=== PATIENT | female | born 1955 | race Caucasian/White ===

== ENCOUNTER → 2019-12-17 12:19 | Outpatient (CLI) | payer OTHER, SELFPAY ==
--- NOTE | ~2019-12-17 | DEXA_ITS ---
Bone Density Report Name: Leah Toney Age: 64 Sex: Female Ethnicity: White Date of : 1955 Indication: osteopenia; monitoring treatment; hysterectomy;postmenopausal Referring Provider: BRINA, DENISE Study: Bone densitometry was performed. Exam Date: December 17, 2019 Accession number: [id number] Bone Density: Region BMD T-score Z-score Classification AP Spine (L1-L4) 0.854 -1.8 -0.2 Osteopenia Femoral Neck (Left) 0.584 -2.4 -1.0 Osteopenia Total Hip (Left) 0.758 -1.5 -0.4 Osteopenia Femoral Neck (Right) 0.633 -1.9 -0.6 Osteopenia Total Hip (Right) 0.793 -1.2 -0.2 Osteopenia Total Hip Mean 0.776 -1.4 -0.3 Osteopenia World Health Organization criteria for BMD impression classify patients as: Normal (T-score at or above -1.0), Osteopenia (T-score between -1.0 and -2.5), or Osteoporosis (T-score at or below -2.5). 10-year Fracture Risk: FRAX not reported because: Treated for osteoporosis Previous Exams: Region Exam Age BMD T-score BMD Change BMD Change Date g/cm2 vs Baseline vs Previous AP Spine(L1-L4) 12/17/2019 64 0.854 -1.8 -0.013 -0.005 01/06/2017 61 0.859 -1.7 -0.007 -0.007 10/30/2010 55 0.867 -1.6 Total Hip(Left) 12/17/2019 64 0.758 -1.5 0.014 0.003 01/06/2017 61 0.754 -1.5 0.010 0.010 10/30/2010 55 0.744 -1.6 Total Hip(Right) 12/17/2019 64 0.793 -1.2 0.067* 0.037* 01/06/2017 61 0.756 -1.5 0.030* 0.030* 10/30/2010 55 0.726 -1.8 *Denotes significance at 95% confidence level, LSC for AP Spine = 0.022 g/cm2, LSC for Total Hip = 0.027 g/cm2 Clinical Information Provided by Patient: Is being treated for osteoporosis Has used the following medications: Reclast (i.e. zoledronate) Has the following medical conditions: Hysterectomy Patient maximum height was 65 Menopause Age: 43 Drinks caffeinated beverages Onset of menses at age 14 Number of children 3 Impression: The patient has low bone mass, based on the Left Femoral Neck T-score. No significant bone loss was observed. Discussion: PATIENT UNDER TREATMENT WITH NO SIGNIFICANT BMD LOSS SINCE LAST EXAM. In an untreated patient, BMD typically declines with age. A lack of decline or gain is usually a sign that treatment is efficacious and fracture risk is reduced. It is important to ask patients whether they are taking their medications and to
== END ==
PROVIDERS: Visit Provider Nurse Practitioner
DX: M85.89 Other specified disorders of bone density and structure, multiple sites (principal)
CPT/HCPCS: 77080

== ENCOUNTER 2020-03-03 16:09 | Outpatient (CLI) | payer OTHER, SELFPAY ==
--- NOTE | ~2020-03-03 | US_ITS ---
EXAMINATION: US joint non vasc ltd LT DATE: 03/03/2020 16:41 INDICATION: Multiple palpable lesions in the left leg. TECHNIQUE: Multiple grayscale and Doppler ultrasound images of the region of consolidation at the lef t leg were obtained. COMPARISON: None FINDINGS: At the anterior left calf there is an 8 x 4 x 4 mm poorly defined nodular echogenic region along the junction between the musculature and subcutaneous fat. The lesion appears centered within the muscula ture but does bulge beyond the level of the fascia on either side of the nodule. There is some vascul ar flow within the echogenic region on color Doppler. No correlate identified at the sites of the dis iona palpable abnormalities at the lateral left ankle and posterior to the left knee. IMPRESSION: 1. Indeterminate 8 x 4 x 4 mm echogenic nodular region centered within the superficial aspect of the musculature which raises concern for neoplasm either benign or malignant. Alternatively this could re present focal inflammatory change. Consider pre and postcontrast MRI for further evaluation. Reviewed, dictated and finalized at location A. Y LEVEL RECRUITER IMPRESSION: 1. Indeterminate 8 x 4 x 4 mm echogenic nodular region centered within the supe rficial aspect of the musculature which raises concern for neoplasm either diogo gn or malignant. Alternatively this could represent focal inflammatory change. Consider pre and postcontrast MRI for further evaluation.
== END 2020-03-03 16:10 | disposition home or self-care (01) ==
PROVIDERS: PCP Internal Medicine
DX: M79.89 Other specified soft tissue disorders (principal)
CPT/HCPCS: 76882

== ENCOUNTER → 2020-05-06 13:25 | Outpatient (CLI) | payer OTHER, SELFPAY ==
--- NOTE | ~2020-05-06 | XR_ITS ---
XR knee LT 3V DATE: 05/06/2020 13:56 INDICATION: Left lower extremity swelling. A by 4 x 4 mm popliteal noted. TECHNIQUE: Standing AP and lateral views. [place] view. COMPARISON: None FINDINGS: No fracture or dislocation or joint effusion. No periosteal reaction or bone destruction. N o radiopaque intra-articular loose body or chondrocalcinosis. Mild periarticular spurring of the rey lla. IMPRESSION: Mild osteoarthritis Reviewed, dictated and finalized at location A. NE REPAIRER SERVICE IMPRESSION: Mild osteoarthritis
== END ==
DX: M79.89 Other specified soft tissue disorders (principal); M17.12 Unilateral primary osteoarthritis, left knee
CPT/HCPCS: 73562

== ENCOUNTER 2022-01-08 07:54 | Outpatient (CLI) | payer OTHER, SELFPAY ==
--- NOTE | ~2022-01-08 | US_ITS ---
EXAMINATION: US venous doppler [facility] DATE: 01/08/2022 09:06 INDICATION: Left lower limb pain. Left lower limb varicose veins. TECHNIQUE: Grayscale ultrasound images without and with compression and Doppler ultrasound images of the left lower extremity veins were obtained. COMPARISON: None. FINDINGS: The visualized portions of left common femoral vein, profunda (deep) femoral vein, femoral vein, popl iteal vein, peroneal veins, posterior tibial veins, and greater saphenous vein outflow are patent. No varicocele veins are identified. IMPRESSION: 1. No deep venous thrombosis. Reviewed, dictated and finalized at location B.
== END 2022-01-08 07:55 | disposition home or self-care (01) ==
DX: I83.813 Varicose veins of bilateral lower extremities with pain (principal); Z48.812 Encounter for surgical aftercare following surgery on the circulatory system
CPT/HCPCS: 93971

== ENCOUNTER → 2022-01-11 08:51 | Outpatient (CLI) | payer OTHER, SELFPAY ==
--- NOTE | ~2022-01-11 | DEXA_ITS ---
Bone Density Report Name: ISABEL MCKEON Age: 66 Sex: Female Ethnicity: White Date of : 1955 Indication: osteopenia; monitoring treatment; hysterectomy; postmenopausal Referring Provider: SANGEETHA SHEA Study: Bone densitometry was performed. Exam Date: January 11, 2022 Accession number: [id number] Bone Density: Region BMD T-score Z-score Classification AP Spine (L1-L4) 0.893 -1.4 0.3 Osteopenia Femoral Neck (Left) 0.607 -2.2 -0.7 Osteopenia Total Hip (Left) 0.776 -1.4 -0.2 Osteopenia Femoral Neck (Right) 0.636 -1.9 -0.4 Osteopenia Total Hip (Right) 0.801 -1.2 0.0 Osteopenia Total Hip Mean 0.789 -1.3 -0.1 Osteopenia World Health Organization criteria for BMD impression classify patients as: Normal (T-score at or above -1.0), Osteopenia (T-score between -1.0 and -2.5), or Osteoporosis (T-score at or below -2.5). 10-year Fracture Risk: FRAX not reported because: Treated for osteoporosis Previous Exams: Region Exam Age BMD T-score BMD Change BMD Change Date g/cm2 vs Baseline vs Previous AP Spine(L1-L4) 01/11/2022 66 0.893 -1.4 0.026* 0.039* 12/17/2019 64 0.854 -1.8 -0.013 -0.005 01/06/2017 61 0.859 -1.7 -0.007 -0.007 10/30/2010 55 0.867 -1.6 Total Hip(Left) 01/11/2022 66 0.776 -1.4 0.032* 0.018 12/17/2019 64 0.758 -1.5 0.014 0.003 01/06/2017 61 0.754 -1.5 0.010 0.010 10/30/2010 55 0.744 -1.6 Total Hip(Right) 01/11/2022 66 0.801 -1.2 0.074* 0.007 12/17/2019 64 0.793 -1.2 0.067* 0.037* 01/06/2017 61 0.756 -1.5 0.030* 0.030* 10/30/2010 55 0.726 -1.8 *Denotes significance at 95% confidence level, LSC for AP Spine = 0.022 g/cm2, LSC for Total Hip = 0.027 g/cm2 Clinical Information Provided by Patient: Is being treated for osteoporosis Has used the following medications: Reclast (i.e. zoledronate), Vitamin D Has the following medical conditions: Hysterectomy Patient maximum height was 65.25 Menopause Age: 43 Drinks caffeinated beverages Onset of menses at age 14 Number of children 3 Impression: The patient has low bone mass, based on the Left Femoral Neck T-score. No significant bone loss was observed. Discussion: PATIENT UNDER TREATMENT WITH NO SIGNIFICANT BMD LOSS SINCE LAST EXAM. In an untreated patient, BMD typic
== END ==
PROVIDERS: PCP Internal Medicine; Visit Provider Obstetrics & Gynecology Gynecology
DX: Z78.0 Asymptomatic menopausal state (principal)
CPT/HCPCS: 77080

== ENCOUNTER 2022-01-15 16:17 | Outpatient (CLI) | payer OTHER, SELFPAY ==
--- NOTE | ~2022-01-15 | US_ITS ---
EXAMINATION: US venous doppler [facility] DATE: 01/15/2022 17:25 INDICATION: Left lower limb swelling. TECHNIQUE: Grayscale images without and with compression and Doppler images of the left lower extremi ty veins were obtained. COMPARISON: None FINDINGS: The left common femoral vein, profunda femoral vein, femoral vein, popliteal vein, peroneal vein, pos terior tibial veins, and greater saphenous vein are patent. IMPRESSION: 1. Patent left lower extremity veins. No evidence of deep venous thrombosis. Reviewed, dictated and finalized at location K.
== END 2022-01-15 16:18 | disposition home or self-care (01) ==
PROVIDERS: PCP Internal Medicine
DX: I83.92 Asymptomatic varicose veins of left lower extremity (principal)
CPT/HCPCS: 93971

== ENCOUNTER → 2022-01-19 08:05 | Outpatient (CLI) | payer OTHER, SELFPAY ==
--- NOTE | ~2022-01-19 | MMUS_ITS ---
EXAMINATION: MM diagnostic cuco LT w berny, US breast LT limited HISTORY: Probable left breast lump TECHNIQUE: Additional 3-D tomosynthesis images of the left breast were performed and synthetic 2-D im ages were generated. CAD analysis was submitted and interpreted. High resolution Limited left breast ultrasound was performed. COMPARISON: None BREAST PARENCHYMAL COMPOSITION: Breast composed of scattered areas of fibroglandular density FINDINGS: MAMMOGRAPHIC FINDINGS: There are no suspicious masses, calcifications or architectural distortion in the left breast to sugg est malignancy. ULTRASOUND: Limited left breast ultrasound: Normal heterogeneous echotexture without focal solid or cystic mass. IMPRESSION: 1. No evidence for malignancy in the left breast. 2. Routine yearly screening mammogram and regular clinical breast examination are recommended. BI-RADS Category 1: Negative Reviewed, dictated and finalized at location A. IMPRESSION: 1. No evidence for malignancy in the left breast. 2. Routine yearly screening mammogram and regular clinical breast examination a re recommended. BI-RADS Category 1: Negative
== END ==
PROVIDERS: PCP Internal Medicine; Visit Provider Advanced Practice Midwife
DX: N63.20 Unspecified lump in the left breast, unspecified quadrant (principal)
CPT/HCPCS: 76642; 77061; 77065; G0279

== ENCOUNTER → 2022-10-12 07:54 | Outpatient (CLI) | payer OTHER, SELFPAY ==
--- NOTE | ~2022-10-12 | MMUS_ITS ---
EXAMINATION: MM diagnostic cuco LT w berny, US breast LT limited HISTORY: Left breast lump TECHNIQUE: ML, MLO and CC 3-D tomosynthesis images of the left breast were performed and synthetic 2- D images were generated. CAD analysis was submitted and interpreted. High resolution targeted left br east ultrasound examination at the area of clinical complaint of breast lump was performed. COMPARISON: 01/19/2022 diagnostic left mammogram and limited left breast ultrasound BREAST PARENCHYMAL COMPOSITION: The breasts are almost entirely fatty. FINDINGS: MAMMOGRAPHIC FINDINGS: No suspicious mass or architectural distortion, malignant calcification, skin thickening or retractio n or significant new or developing density is detected. ULTRASOUND: No suspicious mass or shadowing, cyst or other significant sonographic finding is noted at the area o f clinical complaint of left breast lump at 4:00 8 cm from the nipple. IMPRESSION: 1. Negative; no evidence of malignancy 2. Routine annual mammographic screening is recommended BI-RADS Category 1: Negative Reviewed, dictated and finalized at location A. IMPRESSION: 1. Negative; no evidence of malignancy 2. Routine annual mammographic screening is recommended BI-RADS Category 1: Negative
== END ==
PROVIDERS: PCP Obstetrics & Gynecology Gynecology; Visit Provider Obstetrics & Gynecology Gynecology
DX: N63.20 Unspecified lump in the left breast, unspecified quadrant (principal)
CPT/HCPCS: 76642; 77061; 77065; G0279

== ENCOUNTER 2024-02-15 08:23 | Outpatient (CLI) | payer OTHER, SELFPAY ==
--- NOTE | ~2024-02-15 | MMUS_ITS ---
EXAMINATION: MM diagnostic cuco LT w berny, US breast LT limited HISTORY: Left breast palpable area TECHNIQUE: 3-D tomosynthesis images of the left breast were performed and synthetic 2-D images were g enerated. CAD analysis was submitted and interpreted. High resolution limited left breast ultrasound was performed. COMPARISON: 10/12/2022, 01/19/2022, 11/19/2021 BREAST PARENCHYMAL COMPOSITION:Not Dense. The breasts are almost entirely fatty FINDINGS: MAMMOGRAPHIC FINDINGS: Parenchymal pattern of the left breast is unchanged. No suspicious mass lesion or distortion. No susp icious microcalcification. ULTRASOUND: No sonographic abnormality seen in the region scanned in the left breast from the 4:00-6:00 positions . No mass lesion seen. No fluid collection. IMPRESSION: Stable left mammographic examination. No evidence for malignancy. No mammographic or sonographic correlate seen for area of concern at the 4:00-6:00 positions of the l eft breast. BI-RADS Category 1: Negative Reviewed, dictated and finalized at location M. H SPECIALIST IMPRESSION: Stable left mammographic examination. No evidence for malignancy. No mammographic or sonographic correlate seen for area of concern at the 4:00-6 :00 positions of the left breast. BI-RADS Category 1: Negative
== END 2024-02-15 08:24 | disposition home or self-care (01) ==
LOC: MICIMG 08:24
PROVIDERS: PCP Obstetrics & Gynecology Gynecology; Visit Provider Surgery
DX: N63.25 Unspecified lump in the left breast, overlapping quadrants (principal)
CPT/HCPCS: 76642; 77061; 77065; G0279

== ENCOUNTER 2024-02-27 13:23 | Outpatient (CLI) | payer OTHER, SELFPAY ==
--- NOTE | ~2024-02-27 | DEXA_ITS ---
Bone Density Report Name: ISABEL MCKEON Age: 68 Sex: Female Ethnicity: White Date of : 1955 Indication: postmenopausal; screening for osteoporosis; hysterectomy; Referring Provider: SANGEETHA SHEA Study: Bone densitometry was performed. Exam Date: February 27, 2024 Accession number: [id number] Bone Density: Region BMD T-score Z-score Classification AP Spine(L1-L4) 0.871 -1.6 0.3 Osteopenia Femoral Neck (Left) 0.592 -2.3 -0.7 Osteopenia Total Hip (Left) 0.764 -1.5 -0.2 Osteopenia Femoral Neck (Right) 0.645 -1.8 -0.3 Osteopenia Total Hip (Right) 0.786 -1.3 0.0 Osteopenia Total Hip Mean 0.775 -1.4 -0.1 Osteopenia World Health Organization criteria for BMD impression classify patients as: Normal (T-score at or above -1.0), Osteopenia (T-score between -1.0 and -2.5), or Osteoporosis (T-score at or below -2.5). 10-year Fracture Risk(1): Major Osteoporotic Fracture 12% Hip Fracture 2.2% Reported Risk Factors: [place] (), Neck BMD=0.592, BMI=26.8 (1) FRAX(R) Version 3.08. Fracture probability calculated for an untreated patient. Fracture probability may be lower if the patient has received treatment. Clinical Information Provided by Patient: Has used the following medications: Reclast (i.e. zoledronate), Vitamin D Has the following medical conditions: Hysterectomy Patient maximum height was 65.0 No regular weight bearing exercise Drinks caffeinated beverages Onset of menses at age 14 Number of children 3 Impression: The patient has low bone mass, based on the Left Femoral Neck T-score. The patient has an estimated ten-year risk of hip fracture of 2.2% and an estimated ten-year risk of major fracture of 12%, based on the WHO FRAX algorithm. Discussion: BONE DENSITY IS LOW AT ONE OR MORE SKELETAL SITES. This patient's lowest T-score is low at one or more skeletal sites. It meets the World Health Organization's (WHO) criteria for ?low bone mass? (T-score between -1.0 and -2.5). The patient's 10-year risk of fracture as calculated by FRAX is less than the threshold where pharmacological therapy is recommended by the National Osteoporosis Foundation (NOF). However, all treatment decisions require clinical judgment and consideration of individual patient factors, including patient preferences, comorbidities, previous drug use, risk factors not captured in the FRAX model (e.g., frailty, falls, vitamin D deficiency, increased bone turnover, interval significant decline in bone density) and possible under or overestimation of fracture risk by FRAX. The patient should follow a healthful lifestyle (good nutrition with adequate calcium and vitamin D, and appropriate weight-bearing exercise). Follow-Up: Consider repeating this study in 2 to 3 years to reassess this patient's status, or sooner if there is some new clinical indication. Reported by: MARY on 02/27/2024 2:22:00 PM. Reviewed, dictated and finalized at location AJuanita ESPINOSA
== END 2024-02-27 13:24 | disposition home or self-care (01) ==
LOC: ANHIMG 13:43
PROVIDERS: PCP Internal Medicine; Visit Provider Obstetrics & Gynecology Gynecology
DX: M85.89 Other specified disorders of bone density and structure, multiple sites (principal); Z78.0 Asymptomatic menopausal state
CPT/HCPCS: 77080